=== PATIENT | female | born 1970 | race African-American/Black ===

== ENCOUNTER 2021-04-16 08:40 | Emergency (ER) | payer SELFPAY ==
[2021-04-16] MEDS ORDERED: Sodium Chloride 0.9% 1,000 ML IV ONE (10:24)
[2021-04-16] MEDS ORDERED: Ondansetron 4 MG/2 ML SDV IVPUSH ONE (11:39)
[2021-04-16] MEDS ORDERED: Ketorolac 30 MG/ML SDV IVPUSH ONE (11:39)
[2021-04-16] MEDS ORDERED: Metoclopramide 10 MG/2 ML SDV IV ONE (11:39)
[2021-04-16] MEDS ORDERED: diphenhydrAMINE 50 MG/ML SDV IVPUSH ONE (11:39)
== END 2021-04-16 12:12 | disposition home or self-care (01) ==
LOC: MW.ED 08:40
DX: R51.9 Headache, unspecified (principal); I10 Essential (primary) hypertension
CPT/HCPCS: 70450; 70450-26; 96374; 96375; 99284-25; J1200; J1885; J2405; J2765; J7030

== ENCOUNTER 2021-09-26 23:15 | Emergency (ER) | payer SELFPAY ==
[2021-09-26] MEDS ORDERED: Ibuprofen 600 MG Tab PO ONE (23:30)
[2021-09-26] MEDS ORDERED: Acetaminophen 500 MG Tab PO ONE (23:30)
== END 2021-09-27 00:48 | disposition home or self-care (01) ==
LOC: MW.ED 23:15
DX: U07.1 COVID-19 (principal); I10 Essential (primary) hypertension; Z79.899 Other long term (current) drug therapy
CPT/HCPCS: 71045; 87635; 99285; A9270; 99282; U0002

== ENCOUNTER 2021-09-29 20:00 | Emergency (ER) | payer SELFPAY ==
[2021-09-29 21:13] LABS: CORONAVIRUS COVID-19 NAA POSITIVE (NEGATIVE); INFLUENZA A NAA NEGATIVE (NEGATIVE); INFLUENZA B NAA NEGATIVE (NEGATIVE)
[2021-09-29 22:51] LABS: CARBON DIOXIDE,CO2 28.8 mmol/L (21.0-32.0); POTASSIUM,K 3.5 mmol/L (3.5-5.1)
[2021-09-29] MEDS ORDERED: Sodium Chloride 0.9% 1,000 ML IV ONE (23:19)
[2021-09-30] MEDS ORDERED: Iopamidol 755 MG/ML 500 ML Multipack Bottle IVPUSH STA (00:20)
[2021-09-30] MEDS ORDERED: Benzonatate 100 MG Cap PO ONE (00:55)
== END 2021-09-30 01:29 | disposition home or self-care (01) ==
LOC: MW.ED 20:00
DX: U07.1 COVID-19 (principal); I10 Essential (primary) hypertension
CPT/HCPCS: 0240U; 36415; 71275; 80048; 85379; 93005; 99284; A9270; J7030; Q9967; 93010; 99283

== ENCOUNTER 2022-07-30 10:00 | Day surgery (SDC) | payer SELFPAY ==
[~2022-07-30 10:00] MED LIST: Lactated Ringers 1,000 ML IV SCH; Propofol 200 MG/20 ML SDV ONE
[2022-07-30] MEDS ORDERED: fentaNYL 100 MCG/2 ML SDV ONE (12:14)
== END 2022-07-30 13:20 | disposition home or self-care (01) ==
LOC: MW.SDS 10:00
PROVIDERS: ATTEND Surgery
DX: Z12.11 Encounter for screening for malignant neoplasm of colon (principal); D12.3 Benign neoplasm of transverse colon; I10 Essential (primary) hypertension; E78.00 Pure hypercholesterolemia, unspecified; E11.9 Type 2 diabetes mellitus without complications; E66.9 Obesity, unspecified; Z79.899 Other long term (current) drug therapy; Z68.36 Body mass index [BMI] 36.0-36.9, adult
CPT/HCPCS: 45385; J2704; J3010; J7120

== ENCOUNTER 2022-11-16 08:33 | Emergency (ER) | payer OTHER ==
[2022-11-16] MEDS ORDERED: Naloxone 0.4 MG/ML SDV IVPUSH PRN (08:37)
[2022-11-16] MEDS ORDERED: Sodium Chloride 0.9% 10 ML Syringe FLUSH PRN (08:37)
[2022-11-16] MEDS ORDERED: Sodium Chloride 0.9% 2.5 ML Syringe FLUSH PRN (08:37)
[2022-11-16] MEDS ORDERED: Morphine 4 MG/ML Syringe IVPUSH ONE (08:37)
[2022-11-16] MEDS ORDERED: Ondansetron 4 MG/2 ML SDV IVPUSH ONE (08:37)
[2022-11-16 09:14] LABS: HEMATOCRIT 42.8 % (36.0-46.0); HEMOGLOBIN 13.4 g/dL (12.0-16.0); LYMPHOCYTES ABSOLUTE AUTO 1.8 K/uL (0.6-2.4); LYMPHOCYTES PERCENT AUTO 45.1 % (16.0-40.0); MEAN CORPUSCULAR HEMOGLOBIN 23.8 pg (27.0-32.0); MEAN CORPUSCULAR HGB CONC 31.3 g/dL (31.0-37.0); MEAN CORPUSCULAR VOLUME 76.2 fL (80.0-98.0); MONOCYTES ABSOLUTE AUTO 0.3 K/uL (0.0-0.8); MONOCYTES PERCENT AUTO 6.8 % (0.0-15.0); NEUTROPHILS ABSOLUTE AUTO 1.8 K/uL (1.4-5.7); NEUTROPHILS PERCENT AUTO 46.1 % (48.0-80.0); NRBC ABSOLUTE 0 K/uL; PLATELET COUNT,PLT 239 K/uL (150-400); RED BLOOD CELL COUNT 5.62 M/uL (4.30-5.90); WHITE BLOOD CELL COUNT,WBC 3.99 K/uL (4.0-11.0)
[2022-11-16] MEDS ORDERED: Lidocaine 4% 1 each Patch TOP STA (09:26)
[2022-11-16 09:42] LABS: ALBUMIN 4.2 g/dL (3.4-5.0); BILIRUBIN TOTAL 0.4 mg/dL (0.2-1.0); CALCIUM 8.9 mg/dL (8.5-10.1); CARBON DIOXIDE,CO2 27.5 mmol/L (21.0-32.0); CREATININE 0.8 mg/dL (0.6-1.0); EST CRCL DRUG DOSING (CG) 71.03 mL/min; POTASSIUM,K 3.5 mmol/L (3.5-5.1); PROTEIN TOTAL,TP 8.4 g/dL (6.4-8.2)
== END 2022-11-16 09:54 | disposition home or self-care (01) ==
LOC: MW.ED 08:33
DX: S06.0X0A Concussion without loss of consciousness, initial encounter (principal); S16.1XXA Strain of muscle, fascia and tendon at neck level, initial encounter; I10 Essential (primary) hypertension; E66.9 Obesity, unspecified; Z68.38 Body mass index [BMI] 38.0-38.9, adult; V49.10XA Passenger injured in collision with unspecified motor vehicles in nontraffic accident, initial encounter; Y92.410 Unspecified street and highway as the place of occurrence of the external cause
CPT/HCPCS: 36415; 70450; 72125; 80053; 83690; 85025; 96374; 96375; 99284; A9270; J2270; J2405; J3490

== ENCOUNTER 2022-11-17 17:41 | Emergency (ER) | payer OTHER | END 2022-11-17 20:08 | disposition home or self-care (01) | LOC: MW.ED 17:41 | DX: Z04.1 Encounter for examination and observation following transport accident (principal) | CPT/HCPCS: 99282; 99283 ==

== ENCOUNTER 2023-06-05 12:46 | Emergency (ER) | payer SELFPAY ==
[2023-06-05] MEDS: Ketorolac 30 MG/ML SDV IVPUSH ONE (13:46)
[2023-06-05] MEDS: Sodium Chloride 0.9% 1,000 ML IV ONE (13:46)
[2023-06-05 13:48] LABS: BASOPHILS ABSOLUTE AUTO 0.05 K/uL (0.00-0.20); BASOPHILS PERCENT AUTO 0.9 % (0.0-1.0); EOSINOPHILS ABSOLUTE AUTO 0.04 K/uL (0.00-0.45); EOSINOPHILS PERCENT AUTO 0.7 % (0.0-6.0); HEMATOCRIT 41.4 % (37.0-47.0); HEMOGLOBIN 13.1 g/dL (12.0-16.0); IMMATURE GRAN ABSOLUTE AUTO 0.01 K/uL (0.00-0.05); IMMATURE GRAN PERCENT AUTO 0.2 % (0.0-0.4); LYMPHOCYTES ABSOLUTE AUTO 2.44 K/uL (1.00-4.80); LYMPHOCYTES PERCENT AUTO 44.4 % (24.0-44.0); MEAN CORPUSCULAR HEMOGLOBIN 24.4 pg (28.0-32.0); MEAN CORPUSCULAR HGB CONC 31.6 g/dL (32.0-36.0); MEAN CORPUSCULAR VOLUME 77.1 fL (83.0-99.0); MEAN PLATELET VOLUME 11.1 fL (9.4-12.3); MONOCYTES ABSOLUTE AUTO 0.37 K/uL (0.00-0.80); MONOCYTES PERCENT AUTO 6.7 % (0.0-8.0); NEUTROPHILS ABSOLUTE AUTO 2.59 K/uL (1.80-7.70); NEUTROPHILS PERCENT AUTO 47.1 % (41.0-71.0); PLATELET COUNT,PLT 223 K/uL (150-400); RED BLOOD CELL COUNT 5.37 M/uL (4.10-5.30)
[2023-06-05 14:20] LABS: ALBUMIN 3.9 g/dL (3.4-5.0); BILIRUBIN TOTAL 0.3 mg/dL (0.2-1.0); CALCIUM 9.4 mg/dL (8.5-10.1); CARBON DIOXIDE,CO2 27.1 mmol/L (21.0-32.0); CREATININE 0.7 mg/dL (0.6-1.0); EST CRCL DRUG DOSING (CG) 80.26 mL/min; POTASSIUM,K 4.1 mmol/L (3.5-5.1)
[2023-06-05 15:49] LABS: APPEARANCE,URINE CLEAR; BILIRUBIN,URINE NEGATIVE (NEGATIVE); COLOR,URINE YELLOW; GLUCOSE,URINE NEGATIVE (NEGATIVE); KETONES,URINE NEGATIVE (NEGATIVE); LEUKOCYTE ESTERASE,URINE NEGATIVE (NEGATIVE); NITRITE,URINE NEGATIVE (NEGATIVE); OCCULT BLOOD,URINE NEGATIVE (NEGATIVE); PH,URINE 6.5 (5.0-8.0); PROTEIN,URINE NEGATIVE (NEGATIVE); UROBILINOGEN,URINE 0.2 EU/dL (<2.0)
[2023-06-05] MEDS: Lidocaine 4% 1 each Patch TOP STA (16:35)
== END 2023-06-05 16:35 | disposition home or self-care (01) ==
LOC: MW.ED 12:46
DX: R07.81 Pleurodynia (principal); I10 Essential (primary) hypertension; Z79.899 Other long term (current) drug therapy; E66.9 Obesity, unspecified; Z68.41 Body mass index [BMI] 40.0-44.9, adult; Z75.8 Other problems related to medical facilities and other health care
CPT/HCPCS: 36415; 80053; 81003; 85025; 96374; 99283; A9270; J1885; J7030; 99284

== ENCOUNTER 2023-06-17 04:53 | Emergency (ER) | payer SELFPAY ==
[2023-06-17] MEDS ORDERED: Naloxone 0.4 MG/ML SDV IVPUSH PRN (05:03)
[2023-06-17] MEDS: Ondansetron 4 MG/2 ML SDV IVPUSH ONE (05:07)
[2023-06-17] MEDS: Morphine 4 MG/ML Syringe IVPUSH ONE (05:07)
[2023-06-17] MEDS: Famotidine 20 MG/2 ML SDV IVPUSH ONE (05:07)
[2023-06-17 05:09] LABS: BASOPHILS ABSOLUTE AUTO 0.04 K/uL (0.00-0.20); BASOPHILS PERCENT AUTO 0.8 % (0.0-1.0); EOSINOPHILS ABSOLUTE AUTO 0.05 K/uL (0.00-0.45); HEMATOCRIT 42.2 % (37.0-47.0); HEMOGLOBIN 13.2 g/dL (12.0-16.0); IMMATURE GRAN ABSOLUTE AUTO 0.01 K/uL (0.00-0.05); IMMATURE GRAN PERCENT AUTO 0.2 % (0.0-0.4); LYMPHOCYTES PERCENT AUTO 53.1 % (24.0-44.0); MEAN CORPUSCULAR HEMOGLOBIN 24.1 pg (28.0-32.0); MEAN CORPUSCULAR HGB CONC 31.3 g/dL (32.0-36.0); MEAN PLATELET VOLUME 11.1 fL (9.4-12.3); MONOCYTES ABSOLUTE AUTO 0.38 K/uL (0.00-0.80); MONOCYTES PERCENT AUTO 7.8 % (0.0-8.0); NEUTROPHILS ABSOLUTE AUTO 1.82 K/uL (1.80-7.70); NEUTROPHILS PERCENT AUTO 37.1 % (41.0-71.0); PLATELET COUNT,PLT 201 K/uL (150-400); RED BLOOD CELL COUNT 5.48 M/uL (4.10-5.30)
[2023-06-17 05:34] LABS: A/G RATIO 0.9 (0.9-1.6); ALBUMIN 3.8 g/dL (3.4-5.0); BILIRUBIN TOTAL 0.4 mg/dL (0.2-1.0); CALCIUM 9.2 mg/dL (8.5-10.1); CARBON DIOXIDE,CO2 25.8 mmol/L (21.0-32.0); CREATININE 0.8 mg/dL (0.6-1.0); EST CRCL DRUG DOSING (CG) 76.13 mL/min; POTASSIUM,K 3.9 mmol/L (3.5-5.1); PROTEIN TOTAL,TP 7.8 g/dL (6.4-8.2)
[2023-06-17] MEDS: Sodium Chloride 0.9% 10 ML Syringe FLUSH PRN (05:35)
[2023-06-17] MEDS: Sodium Chloride 0.9% 2.5 ML Syringe FLUSH PRN (05:35)
[2023-06-17 05:48] LABS: D-DIMER QUANTITATIVE 0.37 mg/L FEU (0.00-0.50); INR 0.96 (0.86-1.11); PTT,PARTIAL THROMBOPLSTIN TIME 26.8 SEC (23.9-30.7)
[2023-06-17] MEDS: Sucralfate Suspension 1 GM/10 ML Cup PO ONE (06:16)
[2023-06-17] MEDS: Aspirin 81 MG Tab.Chew PO ONE (06:16)
[2023-06-17] MEDS: Lidocaine 4% 1 each Patch TOP STA (06:16)
[2023-06-17] MEDS: Lidocaine 4% 1 each Patch ONE (06:22)
== END 2023-06-17 08:16 | disposition home or self-care (01) ==
LOC: MW.ED 04:53
DX: K21.9 Gastro-esophageal reflux disease without esophagitis (principal); M54.9 Dorsalgia, unspecified; I10 Essential (primary) hypertension; E66.9 Obesity, unspecified; Z79.899 Other long term (current) drug therapy; Z68.30 Body mass index [BMI] 30.0-30.9, adult
CPT/HCPCS: 36415; 71045; 80053; 83690; 84484; 85025; 85379; 85610; 85730; 93005; 96374; 96375; 99285; A9270; J2270; J2405; J3490; 93010; 99283